=== PATIENT | female | born 1940 | race Caucasian/White ===

== ENCOUNTER 2024-01-05 11:15 | Outpatient (RCR) | payer MEDICARE, SELFPAY ==
[2023-12-06 09:09] VITALS: BP_SYST 108
--- NOTE | 2023-12-06 09:54 | OPREHPOC ---
Outpatient Therapy Plan of Care This is a Multidisciplinary Plan of Care that may contain components documented by all disciplines (PT, OT, and ST.) PT Problem 1 PT Problem #1 Knowledge Deficit PT Goal 1 Goal Pt will be independent in HEP Pt will verbalize understanding of diagnosis and prognosis Target Visit 6 PT Problem 2 PT Problem #2 Pain PT Goal 1 Goal Pt will report resolution of pain with normal ADLs and activities Target Visit 8 PT Goal 2 Goal Pt will report resolution of pain with high level activities to return to PLOF Target Visit 16 PT Problem 3 PT Problem #3 Impaired Range of Motion PT Goal 1 Goal Pt will demo active ROM RUE flexion and abduction increase by 15 degrees Target Visit 8 PT Goal 2 Goal Pt will demo active ROM of RUE flexion and abduction equal to LUE to return to PLOF Target Visit 16 PT Problem 4 PT Problem #4 Impaired Endurance PT Goal 1 Goal Pt will demo appropriate posture through entire therapy session without cueing for improved shoulder joint positioning Target Visit 16
--- NOTE | 2023-12-06 09:54 | PTOPEVAL1 ---
Assessment and note entered by Carmella Maldonado, PT Evaluation Information Assessment Status Evaluation Diagnosis right shoulder pain Therapy condition abnormal posture, stiffness right shoulder joint Onset 3-4 months Subjective Information magically it feels way better now than it did . Got an arthritis shot about 3 weeks ago and shoulder feels much better. While was on vacation didn't notice it but also didn't do anything with her shoulder. Was hurting when doing simple things like using a mouse but now has not difficulty. Reports ADLs and activities (not heavy like gardening) are almost back to normal but not quite . Still hurts a bit, not like it did . Prior to shot couldn't hardly lift anything with right arm. Has not returned to heavy gardening, doesn't sweep or vacuum has robot Right hand dominant Reported Pain Level Pain Score 0: Self Report Assessment PT Clinical Summary Pt presents with complaints of right shoulder pain that began about 3-4 months ago. She recently received an arthritis shot about 3 weeks ago and pain has improved dramatically. However evaluation cont to show decreased active and passive ROM of R shoulder with impingement type symptoms, abnormal resting muscle tonicity, and abnormal postures. Thus patient will benefit from physical therapy in order to address deficits, improve ROM, posture, muscle patterns, reduce pain, and return to PLOF without shoulder pain. Plan of Care Interventions Electrical Stimulation,Hot Pack/Cold Pack,Manual Therapy,Neuro Re-education,Patient/Caregiver Educati,Therapeutic Activities,Therapeutic Exercise,Self-Care/Home Management,Ultrasound PT Services Indicated Yes Treatment Frequency and 1-2x weekly x 16 visits Duration These treatments will address the objective and functional deficits as defined above. The patient will be advanced safely and appropriately in order for the patient to progress towards his/her prior level of function. Additional exercises will be introduced and as well as a comprehensive home exercise program upon discharge, if needed, ?to ensure carryover of functional gains achieved in the clinic. This treatment plan has been reviewed and agreement upon by the patient.
--- NOTE | 2024-01-05 15:29 | PTOPDC ---
Assessment and note entered by Olga Arriaga, PT Discharge Information Assessment Status Discharge Diagnosis right shoulder pain Onset 3-4 months Subjective Information Pt reports 0/10 pain to B shoulders, is performing all ADLs and IADLs without discomfort at this time, able to lift objects and reach overhead normally without pain. Reported Pain Level Pain Score 0: Self Report Assessment PT Clinical Summary Pt has met all established goals, demos good ROM and strength, improved posture and good compliance with HEPs. Reports has not had therapy before but has benefited from this program and has learned from the education and handouts provided. Skilled PT discontinued at this time, to follow through with maintenance HEPs. Plan of Care PT Services Indicated No
== END 2024-01-17 11:54 | disposition home or self-care (01) ==
LOC: ANHHIPT 11:15
PROVIDERS: PCP Physician Assistant Medical; Visit Provider Physician Assistant Medical
DX: M25.511 Pain in right shoulder (principal)
CPT/HCPCS: 97110; 97140; 97161; 97530